=== PATIENT | male | born 1950 | race Caucasian/White ===

== ENCOUNTER 2016-04-08 13:54 | Emergency (ER) | payer OTHER ==
[~2016-04-08] VITALS: Ht 175.3 cm; Wt 127.3 kg
[~2016-04-08 13:54] MED LIST: ASPIRIN 32325 MG/TAB; BENADRYL25 M2 PO; CELEBREX 200MG200 MG PO; CRESTOR20 MG PO; DILAUDID 4MG TAB4 MG PO; EPIPEN 2-PAK1 MG/ML IM; MOBIC15 MG PO; PAXIL CR25 MG PO; PREDNISONE20 MG PO; PRINIVIL20 MG PO; PROAIR HFA0.09 MG/AC IH; SINGULAIR 110 MG/TAB PO; XANAX 1MG1 MG PO; ZANAFLEX 4MG TAB4 MG PO
[2016-04-08 13:59] VITALS: BP 158/74; TEMP 98.3
[2016-04-08 14:49] LABS: INFLUENZA B NEGATIVE
[2016-04-08] MEDS ORDERED: LEVAQUIN 5500 MG/TA1 PO ×2 (16:02→16:21)
[2016-04-08] MEDS ORDERED: IPRATROPIUM BROM3 M1 IH ×2 (16:04→16:21)
[2016-04-08 16:40] VITALS: PULSE 80
== END 2016-04-08 16:40 | disposition home or self-care (01) ==
LOC: COL.ER 13:54
PROVIDERS: Emergency Medicine
DX: J01.90 Acute sinusitis, unspecified (principal); E11.9 Type 2 diabetes mellitus without complications; I10 Essential (primary) hypertension; J45.909 Unspecified asthma, uncomplicated; R91.8 Other nonspecific abnormal finding of lung field
CPT/HCPCS: J1100

== ENCOUNTER 2016-06-11 09:37 | Emergency (ER) | payer OTHER ==
[~2016-06-11] VITALS: Ht 172.7 cm; Wt 130.9 kg
[2016-06-11 09:37] VITALS: BP 155/79; PULSE 60; TEMP 97
[~2016-06-11 09:37] MED LIST changes: +IPRATROPIUM BROM3 M1 IH; +LEVAQUIN 5500 MG/TA1 PO
== END 2016-06-11 12:33 | disposition home or self-care (01) ==
LOC: COL.ER 09:37
DX: S16.1XXA Strain of muscle, fascia and tendon at neck level, initial encounter (principal); S80.01XA Contusion of right knee, initial encounter; V44.6XXA Car passenger injured in collision with heavy transport vehicle or bus in traffic accident, initial encounter; Y92.410 Unspecified street and highway as the place of occurrence of the external cause

== ENCOUNTER → 2017-04-16 | Outpatient (CLI) | payer BC, OTHER | LOC: COL.RAD 11:57 | DX: R05 Cough (principal); R06.2 Wheezing ==

== ENCOUNTER → 2018-03-25 | Outpatient (CLI) | payer BC, OTHER | LOC: COL.RAD 10:11 | DX: M17.12 Unilateral primary osteoarthritis, left knee (principal); S89.92XA Unspecified injury of left lower leg, initial encounter ==

== ENCOUNTER 2018-04-02 12:58 | Outpatient (RCR) | payer OTHER | END 2018-04-03 13:42 | disposition home or self-care (01) | LOC: WSOH 12:58 | DX: S80.02XA Contusion of left knee, initial encounter (principal); M17.11 Unilateral primary osteoarthritis, right knee; W22.8XXA Striking against or struck by other objects, initial encounter; Y92.811 Bus as the place of occurrence of the external cause; Y99.0 Civilian activity done for income or pay; Z79.82 Long term (current) use of aspirin; Z79.899 Other long term (current) drug therapy; F17.220 Nicotine dependence, chewing tobacco, uncomplicated ==

== ENCOUNTER → 2018-08-21 | Outpatient (CLI) | payer BC, OTHER | LOC: COL.RAD 14:25 | DX: M48.061 Spinal stenosis, lumbar region without neurogenic claudication (principal); M43.16 Spondylolisthesis, lumbar region; Z98.1 Arthrodesis status ==

== ENCOUNTER → 2019-03-23 | Outpatient (CLI) | payer BC, OTHER | LOC: COL.RAD 13:43 | DX: R05 Cough (principal); R06.2 Wheezing; R07.9 Chest pain, unspecified ==

== ENCOUNTER → 2019-04-14 | Outpatient (CLI) | payer BC, OTHER | LOC: COL.RAD 10:19 | DX: R05 Cough (principal); R06.02 Shortness of breath; R06.2 Wheezing ==

== ENCOUNTER 2019-04-23 12:01 | Emergency (ER) | payer BC, OTHER ==
[2019-04-23 12:07] VITALS: BP 171/81
[2019-04-23] MEDS ORDERED: NORVASC 5MG5 MG/TAB PO (12:23)
[2019-04-23] MEDS ORDERED: LIPITOR20 MG PO (12:24)
[2019-04-23] MEDS ORDERED: ASPIRIN 81M81 MG/TA2 PO (12:24)
[2019-04-23] MEDS ORDERED: TESSALON P100 MG/CAP PO ×2 (12:25→14:15)
[2019-04-23] MEDS ORDERED: WELLBUTRIN XL150 MG PO (12:25)
[2019-04-23] MEDS ORDERED: ZYRTEC 10MG10 MG PO (12:26)
[2019-04-23] MEDS ORDERED: ATHLETE'S FOOT1% TP (12:27)
[2019-04-23] MEDS ORDERED: FOLIC ACID 11 MG/TA1 PO (12:28)
[2019-04-23] MEDS ORDERED: SINGULAIR 110 MG/TAB PO (12:29)
[2019-04-23] MEDS ORDERED: DOXYCYCLINE 10100 MG PO (14:15)
[2019-04-23] MEDS ORDERED: MEDROL 4MG DOSPA4 MG PO (14:15)
[2019-04-23 14:30] VITALS: PULSE 84; TEMP 98.3
== END 2019-04-23 14:35 | disposition home or self-care (01) ==
LOC: COL.ER 12:01
DX: J40 Bronchitis, not specified as acute or chronic (principal); I10 Essential (primary) hypertension; Z79.82 Long term (current) use of aspirin

== ENCOUNTER 2019-04-24 17:33 | Inpatient (IN) | payer BC, OTHER, MEDICARE ==
[~2019-04-24] VITALS: Ht 172.7 cm; Wt 122.2 kg
[~2019-04-24 17:33] MED LIST changes: +ASPIRIN 81M81 MG/TA2 PO; +ATHLETE'S FOOT1% TP; +DOXYCYCLINE 10100 MG PO; +FOLIC ACID 11 MG/TA1 PO; +LIPITOR20 MG PO; +MEDROL 4MG DOSPA4 MG PO; +NORVASC 5MG5 MG/TAB PO; +TESSALON P100 MG/CAP PO; +WELLBUTRIN XL150 MG PO; +ZYRTEC 10MG10 MG PO
[2019-04-24 18:04] LABS: BASO # 0.1 (0.0-0.2); EOS # 0.8 (0.0-0.7); EOS % 8.7 % (0-4.0); GRAN # 5.5 (1.4-6.5); GRAN % 59.4 % (42.2-75.2); HEMATOCRIT 45.3 % (42.0-52.0); HEMOGLOBIN 14.8 g/dl (13.5-18.0); LYMPH # 1.8 (1.2-3.4); LYMPH % 19.3 % (20.0-51.0); MEAN CELL VOLUME 85 fl (80.0-100.0); MEAN CORPUSCULAR HEMOGLOBIN 28 pg (27.0-31.0); MEAN CORPUSCULAR HGB CONC 33 g/dl (33.0-37.0); MONO # 1.1 (0.1-0.6); MONO % 11.3 % (1.7-9.3); PLATELET COUNT 297 K/mm3 (130-400); RED BLOOD COUNT 5.36 M/mm3 (4.20-5.60); REDCELL DISTRIBUTION WIDTH-CV 14.2 % (11.5-14.5)
[2019-04-24 18:18] LABS: BILIRUBIN,TOTAL 1.2 mg/dL (0.0-1.0); C-REACTIVE PROTEIN 1.8 mg/dL (0.0-0.9); CALCIUM 9.6 mg/dL (8.4-10.2); CREATININE, serum 1.16 (0.66-1.25); POTASSIUM 4.4 mmol/L (3.4-5.0); TOTAL PROTEIN 8.7 gm/dL (6.4-8.2)
[2019-04-24 18:28] LABS: TROPONIN-I 0.024 ng/mL (0.000-0.035)
[2019-04-24 21:36] VITALS: BP 149/62; PULSE 84; TEMP 99
--- NOTE | 2019-04-24 22:28 | NUR ---
Pt. sitting up at bedside at this time. Pt. is A&OX3, assessment complete. INT to lt. ac patent. Pt. denies pain or other needs, call light within reach.
--- NOTE | 2019-04-25 08:45 | NUR ---
Assessment charted. Patient A&Ox4, reporting pain in back. Pain medication requested. VSS 1.5L NC O2, reporting SOB with exertion. Patient has nonproductive cough with deep breaths. IV CDI, fluids infusing. Patient has visible shaking in hands and twitching in around eyes, patient states "its from the breathing treatment". Patient is steady on feet. No further needs expressed from patient. Call light within reach
[2019-04-25 08:56] VITALS: BP 131/62; PULSE 90; TEMP 97.7
[2019-04-25 11:39] VITALS: BP 146/69; PULSE 91; TEMP 98.3
--- NOTE | 2019-04-25 14:22 | NUR ---
Plan: To return home to [place] [phone] as care support. Patient also noted his and his daughter as JUAN Romano [phone]. Patient declined a DOPA at this time. PATIENT LIVES IN [facility]. Assess: SW met with patient withhis daughter and granddaughter at his bedside. Patient gave permission for SW to discuss information in front of his family. Patient reports that he utilizes a nebulizer, and that he did not know the name of his PCP at this time, but that she works at [employer]. Patient reported that he has an appointment coming up around the end of April early May. Patient indicated that he gets his medications from [facility] pharmacy with no complications. Patient declined a need for home health services at this time. However, patient was frusterated about treatment received when he presented to the ED a couple of nights ago. Plan: SW validated patients concerns and indicated that line installation supervisor would be informed. Patient was also educated about community resources. SW will follow up with patient to determine if more services will be needed.
[2019-04-25 15:49] VITALS: BP 118/58; PULSE 92; TEMP 98.2
--- NOTE | 2019-04-25 17:34 | NUR ---
Patient sitting on the edge of bed eating dinner. Family at the bedside. VSS. IV switched to INT. No report of pain or discomfort and SOB. Patient has had episodes of coughing that has been nonproductive. No further needs expressed from patient. Call light within reach
[2019-04-25 19:37] VITALS: BP 124/52; PULSE 73; TEMP 98.8
--- NOTE | 2019-04-25 21:15 | NUR ---
Pt. sitting up in bed with family at bedside. Pt. is A&OX3, assessment complete. INT to lt. ac patent. Pt. reports pain at a 6 on pain scale, gave pain meds per orders. Pt. denies further needs, call light within reach.
[2019-04-25 23:48] VITALS: BP 96/46; PULSE 71; TEMP 99.2
[2019-04-26 04:06] VITALS: BP 94/45; PULSE 68; TEMP 97.9
[2019-04-26 07:35] VITALS: BP 102/49; PULSE 76; TEMP 98.3
[2019-04-26 08:17] LABS: CALCIUM 9.4 mg/dL (8.4-10.2); CHOLESTEROL RISK RATIO 4.2; CREATININE, serum 1.05 (0.66-1.25); POTASSIUM 4.7 mmol/L (3.4-5.0)
[2019-04-26 08:22] LABS: BASO % 0.1 % (0.0-2.0); GRAN # 13.5 (1.4-6.5); GRAN % 88.6 % (42.2-75.2); HEMATOCRIT 39.3 % (42.0-52.0); LYMPH % 6.3 % (20.0-51.0); MEAN CELL VOLUME 85 fl (80.0-100.0); MEAN CORPUSCULAR HEMOGLOBIN 28 pg (27.0-31.0); MEAN CORPUSCULAR HGB CONC 33 g/dl (33.0-37.0); MONO # 0.6 (0.1-0.6); PLATELET COUNT 272 K/mm3 (130-400); RED BLOOD COUNT 4.63 M/mm3 (4.20-5.60); REDCELL DISTRIBUTION WIDTH-CV 14.3 % (11.5-14.5)
[2019-04-26 08:26] LABS: HEMOGLOBIN 12.8 g/dl (13.5-18.0)
--- NOTE | 2019-04-26 09:09 | NUR ---
Patient sitting up at edge of bed. He is concerned about his eye drops, he is going to have his bring his home drops. We reviewed home medications, he reports he takes them HS. He continues to report SOB. Vss on o2. He tolerated breakfast with out nausea.
--- NOTE | 2019-04-26 09:40 | NUR ---
Patient worked with therapy and ambulated in the halls. Warehouse Freight Handler assisting with hygiene. He continues to have dry cough. He is also shaky whcih is not his normal.
[2019-04-26] MEDS ORDERED: IPRATROPIUM BROM3 M1 IH (12:11)
[2019-04-26 12:35] VITALS: BP 123/64; PULSE 82; TEMP 98.1
[2019-04-26 16:38] VITALS: BP 147/61; PULSE 97; TEMP 98.5
--- NOTE | 2019-04-26 18:03 | NUR ---
Patient sitting up in bed, family at bedside. He has requested all visitors wear mask. He has ate well today. Rt has Bipap ready for him to wear tonight. Student nurse assisted with cares this afternoon.
--- NOTE | 2019-04-26 18:37 | NUR ---
Patient has rested comfortably throughout the afternoon. He is currently visiting with family. Patient has requested that all visitors wear masks. RT has a bipap ready for him to wear this evening.
--- NOTE | 2019-04-26 19:15 | NUR ---
Report received. Assumed care for restaurant shift supervisor. A&Ox3. Assessment complete. VS stable. O2@1L/NC-O2 sat 93%. All lung botello with insp/exp wheezes. Very shakey-states the steroids/breathingn tx are making him feel jittery and anxious. Requesting pain meds-discussed that it was to early for pain meds that he would be able to have some at 2014. Very upset about this and agitated. States "I take my pain meds when I want so just give them to me." This nurse explained how medication/doctors orders work and offered to contact provider to see if med timing could be adjusted. States "Im tired of explaining my pain medications to everyone, just bring it when I can have it and place it on my tongue so you can watch and make sure I take it." Did not want to discuss any further. Will adminnister med when due. Does have a cough-scant amount of production green in color. States he is irritated because he is coughing up green "crap" and this not asthma. Informed of sputum culture results. Plan of care discussed for HS meds/Pain meds/O2/BIPAP/breathing tx. Denies questions or concerns. Encouraged to call for needs. Verbalizes understanding. Will monitor.
[2019-04-26 20:00] VITALS: BP 147/55; PULSE 102; TEMP 97.5
[2019-04-26 23:31] VITALS: BP 131/64; PULSE 68; TEMP 98.3
[2019-04-27 04:00] VITALS: BP 126/58; PULSE 88; TEMP 98
[2019-04-27 07:30] VITALS: BP 117/62; PULSE 71; TEMP 98.8
[2019-04-27 08:42] LABS: BASO % 0.1 % (0.0-2.0); GRAN # 12.3 (1.4-6.5); HEMATOCRIT 40.2 % (42.0-52.0); LYMPH # 0.7 (1.2-3.4); LYMPH % 5.3 % (20.0-51.0); MEAN CELL VOLUME 86 fl (80.0-100.0); MEAN CORPUSCULAR HEMOGLOBIN 28 pg (27.0-31.0); MEAN CORPUSCULAR HGB CONC 32 g/dl (33.0-37.0); MEAN PLATELET VOLUME 9.4 fl (7.4-10.4); MONO # 0.4 (0.1-0.6); MONO % 3.2 % (1.7-9.3); PLATELET COUNT 316 K/mm3 (130-400); REDCELL DISTRIBUTION WIDTH-CV 14.5 % (11.5-14.5)
[2019-04-27 08:52] LABS: ALBUMIN 4.3 gm/dL (3.5-5.0); BILIRUBIN,TOTAL 0.7 mg/dL (0.0-1.0); CALCIUM 9.3 mg/dL (8.4-10.2); CREATININE, serum 1.19 (0.66-1.25); POTASSIUM 4.6 mmol/L (3.4-5.0); TOTAL PROTEIN 7.6 gm/dL (6.4-8.2)
--- NOTE | 2019-04-27 10:35 | NUR ---
Patient is alert and oriented and currenty sitting on the edge of his bed. Patient informed me that he has not had a bowel movement since Monday 04/24 morning. Prune juice was given to the patient in hopes that it will allow him to have a bowel movement.
--- NOTE | 2019-04-27 11:19 | NUR ---
Initial visit; Patient thanked Printed Circuit Board Panels Plater for looking in on him and offering prayer and God's blessings.
[2019-04-27 12:09] VITALS: BP 146/69; PULSE 77; TEMP 98.4
[2019-04-27] MEDS ORDERED: DOXYCYCLINE 10100 MG PO ×2 (12:56)
[2019-04-27] MEDS ORDERED: PREDNISONE10 MG PO ×2 (13:49→13:58)
--- NOTE | 2019-04-27 17:05 | NUR ---
Discharge education provided to patient and spouse. educated on new medications and follow up appointments. Patient also educated on when to call provider. INT to left AC discontinued, catheter tip intact. Denies further needs at this time. Home dilaudid was returned to patient from pharmacy. All questions answered. Patient out by wheelchair with family and surgical staff.
== END 2019-04-27 17:00 | disposition home or self-care (01) | DRG 202 ==
LOC: COL.ER 17:33 → SURG 19:35
PROVIDERS: Emergency Medicine; Physician Assistant; ADMIT Student in an Organized Health Care Education/Training Program
DX: J45.901 Unspecified asthma with (acute) exacerbation (principal); J96.01 Acute respiratory failure with hypoxia; Z68.41 Body mass index [BMI] 40.0-44.9, adult; G89.29 Other chronic pain; E78.5 Hyperlipidemia, unspecified; E11.9 Type 2 diabetes mellitus without complications; F41.8 Other specified anxiety disorders; G47.33 Obstructive sleep apnea (adult) (pediatric); Z88.5 Allergy status to narcotic agent; Z88.0 Allergy status to penicillin; Z88.8 Allergy status to other drugs, medicaments and biological substances; Z88.6 Allergy status to analgesic agent; Z88.1 Allergy status to other antibiotic agents; Z91.040 Latex allergy status; I10 Essential (primary) hypertension; I25.10 Atherosclerotic heart disease of native coronary artery without angina pectoris; E66.01 Morbid (severe) obesity due to excess calories; D72.1 Eosinophilia; R07.89 Other chest pain
CPT/HCPCS: OP; 99222-AI; 99232-AI; 99239; G0378; J1650; J2920; J2930; J7030

== ENCOUNTER 2020-09-13 07:10 | Day surgery (SDC) | payer BC, OTHER ==
[~2020-09-13] VITALS: Ht 172.7 cm; Wt 132.0 kg
[~2020-09-13 07:10] MED LIST changes: +PREDNISONE10 MG PO
[2020-09-13] MEDS ORDERED: PRINIVIL20 MG PO (07:48)
[2020-09-13] MEDS ORDERED: NUCALA100 MG/1 M SQ (07:50)
[2020-09-13 08:04] VITALS: BP 130/71; PULSE 61; TEMP 97.8
[2020-09-13 09:05] VITALS: BP 123/72; PULSE 66; TEMP 98.1
--- NOTE | 2020-09-13 10:15 | NUR ---
0905 Pt returns from endo procedure via cart. Pt ambulates from cart to recliner with RN assist. Pt alert and oriented. Monitors on and alarms set. Call light within reach. Report received from GILA Gonzalez. Pt requesting muffin and juice. Pt's daughter present in room. Pt denies pain or nausea. 919 Pt taking food and drink well. No complications mentioned. Pt ambulates to restroom with RN assist, and then returns to discharge room having voided. 1015 Discharge instructions given to pt and daughter. All questions answered to their satisfaction. Handed to them are a thank you card and discharge instructions. Pt transferred out of hospital via wheelchair and this RN assist to private vehicle driven by daughter.
== END 2020-09-13 10:15 | disposition home or self-care (01) ==
LOC: SDCO 07:10
DX: Z12.11 Encounter for screening for malignant neoplasm of colon (principal); D12.0 Benign neoplasm of cecum; D12.2 Benign neoplasm of ascending colon; D12.4 Benign neoplasm of descending colon; D12.5 Benign neoplasm of sigmoid colon; K64.0 First degree hemorrhoids; Z20.822 Contact with and (suspected) exposure to COVID-19; E11.22 Type 2 diabetes mellitus with diabetic chronic kidney disease; I12.9 Hypertensive chronic kidney disease with stage 1 through stage 4 chronic kidney disease, or unspecified chronic kidney disease; N18.9 Chronic kidney disease, unspecified; G47.33 Obstructive sleep apnea (adult) (pediatric); E78.5 Hyperlipidemia, unspecified; J45.909 Unspecified asthma, uncomplicated; F17.220 Nicotine dependence, chewing tobacco, uncomplicated; F32.9 Major depressive disorder, single episode, unspecified; F41.9 Anxiety disorder, unspecified; Z79.899 Other long term (current) drug therapy
CPT/HCPCS: 32190

== ENCOUNTER 2023-03-01 12:59 | Outpatient (RCR) | payer OTHER, BC ==
[~2023-03-01 12:59] MED LIST changes: +NUCALA100 MG/1 M SQ
== END 2023-03-10 | disposition home or self-care (01) ==
LOC: WSPT
DX: M54.2 Cervicalgia (principal); M54.50 Low back pain, unspecified; V89.2XXA Person injured in unspecified motor-vehicle accident, traffic, initial encounter

== ENCOUNTER → 2023-04-10 | Outpatient (RCR) | payer OTHER, BC | END | disposition home or self-care (01) | LOC: WSPT | DX: M54.2 Cervicalgia (principal); M54.50 Low back pain, unspecified; V89.2XXD Person injured in unspecified motor-vehicle accident, traffic, subsequent encounter ==

== ENCOUNTER 2023-06-07 13:30 | Outpatient (RCR) | payer OTHER, BC | END 2023-06-09 | disposition home or self-care (01) | LOC: WSC | DX: M54.50 Low back pain, unspecified (principal); M54.2 Cervicalgia; M25.561 Pain in right knee; M25.562 Pain in left knee; G89.29 Other chronic pain; V89.2XXD Person injured in unspecified motor-vehicle accident, traffic, subsequent encounter | CPT/HCPCS: G0283-GP ==